=== PATIENT | female | born 1950 | race Caucasian/White ===

== ENCOUNTER → 2022-05-24 12:02 | Outpatient (CLI) | payer MEDICARE, SELFPAY ==
--- NOTE | ~2022-05-24 | XR_ITS ---
EXAMINATION: XR hand BI arthritis min 3V DATE: 05/24/2022 12:42 INDICATION: Primary osteoarthritis, right hand. TECHNIQUE: 3 views of the right hand and 3 views of the left hand were obtained. COMPARISON: None. FINDINGS: RIGHT HAND: Bone alignment is normal. No fracture. There is mild osteoarthritis of triscaphe joint an d severe osteoarthritis of first carpometacarpal joint. There is mild osteoarthritis of second metaca rpophalangeal joint and some of the interphalangeal joints. There is moderate osteoarthritis of first interphalangeal joint and fifth distal interphalangeal joint and severe osteoarthritis of second and third distal interphalangeal joints. LEFT HAND: Bone alignment is normal. No fracture. There is severe osteoarthritis of first carpometaca rpal joint and mild osteoarthritis of second metacarpophalangeal joint and some of the interphalangea l joints. There is severe osteoarthritis of first interphalangeal joint and second and third distal i nterphalangeal joints and moderate osteoarthritis of fourth distal interphalangeal joint. IMPRESSION: 1. Polyarticular osteoarthritis. Reviewed, dictated and finalized at location A. [employer]
--- NOTE | ~2022-05-24 | XR_ITS ---
EXAMINATION: XR lumbar spine min 4V DATE: 05/24/2022 12:44 INDICATION: Unspecified abdominal pain TECHNIQUE: Anteroposterior, lateral, and bilateral oblique views of the lumbar spine, and cone-down l ateral view of the lumbosacral junction were obtained. COMPARISON: None. FINDINGS: Bone alignment is normal. There is no fracture. There is mild loss of intervertebral disc s pace height throughout the lumbar spine. The vertebral body heights are maintained. Small degenerativ e osteophytes project from the anterior endplates of multiple vertebral bodies. There is multilevel m oderate facet joint osteoarthritis. Calcified atherosclerosis is noted. IMPRESSION: 1. Mild to moderate lumbar spondylosis without acute findings. Reviewed, dictated and finalized at location B. NEYMAN GLAZIER
== END ==
PROVIDERS: PCP Family Medicine; Visit Provider Family Medicine
DX: M15.9 Polyosteoarthritis, unspecified (principal); R10.9 Unspecified abdominal pain; M47.816 Spondylosis without myelopathy or radiculopathy, lumbar region
CPT/HCPCS: 72110; 73130